=== PATIENT | female | born 1980 ===

== ENCOUNTER 2017-09-23 16:44 | Emergency (ER) | payer OTHER ==
--- NOTE | 2017-09-23 17:58 | RAD ---
INDICATION: Right hip pain. COMPARISON: There are no prior studies available for comparison. TECHNIQUE: An AP view of the pelvis and frontal and lateral views of the right hip were obtained. FINDINGS: The bones are in normal alignment. No fracture is seen. Joint spaces appear maintained. IMPRESSION: NO EVIDENCE FOR FRACTURE.
--- NOTE | 2017-09-23 18:04 | UC ---
Hip/Pelvis Pain - HPI Summary HPI Summary: Pt presents with right groin pain for 1 month. She tells me that she is very active and was in yoga one day when she felt a pull in her right groin. She was able to continue, but the pain persisted the next day. This has been bothering her intermittently since that time. When she has rested for a day or two, she will have no pain - but as soon as she is active, her pain will return. She has not taken anything OTC for this. Denies fever, chills, abdominal pain, n/v/d/c, dysuria, hematuria, flank pain, back pain, vaginal bleeding or discharge. - History Of Current Complaint Chief Complaint: UCLowerExtremity Stated Complaint: LEG INJURY Time Seen by Provider: 09/23/17 17:36 Hx Obtained From: Patient Hx Last Menstrual Period: 09/19/17 ?: No Onset/Duration: Gradual Onset Timing: Intermittent Episodes Lasting: Severity Initially: Mild Severity Currently: Mild Pain Intensity: 1 Pain Scale Used: 0-10 Numeric Character Of Pain: Aching Aggravating Factor(s): Movement Alleviating Factor(s): Rest - Allergies/Home Medications Allergies/Adverse Reactions: Allergies Allergy/AdvReac Type Severity Reaction Status Date / Time No Known Allergies Allergy Verified 09/23/17 17:32 PMH/Surg Hx/FS Hx/Imm Hx Previously Healthy: Yes - Surgical History Surgical History: None - Family History Known Family History: Positive: None - Social History Occupation: Employed Full-time Lives: With Family Alcohol Use: Occasionally Substance Use Type: None Smoking Status (MU): Never Smoked Tobacco Review of Systems Constitutional: Negative Skin: Negative Respiratory: Negative Cardiovascular: Negative Gastrointestinal: Negative Genitourinary: Negative Neurovascular: Negative Musculoskeletal: Other: - Pain right hip Neurological: Negative Psychological: Negative All Other Systems Reviewed And Are Negative: Yes Physical Exam Triage Information Reviewed: Yes Appearance: Well-Appearing, No Pain Distress, Well-Nourished Vital Signs: Initial Vital Signs Temp 97.6 F 09/23/17 17:28 Pulse 84 09/23/17 17:28 Resp 18 09/23/17 17:28 BP 118/66 09/23/17 17:28 Pulse Ox 99 09/23/17 17:28 Vital Signs Reviewed: Yes Neck: Positive: Supple, Nontender, No Lymphadenopathy, Other: - FROM Respiratory: Positive: Lungs clear, Normal breath sounds, No respiratory distress, No accessory muscle use Cardiovascular: Positive: RRR, No Murmur, Pulses Normal Abdomen Description: Positive: Nontender, No Organomegaly, Soft, Other: - No inguinal or femoral hernia appreciated. Negative: Distended, Guarding Bowel Sounds: Positive: Present Musculoskeletal: Positive: Strength Intact - Right hip, ROM Intact - Right hip, but with reproduction of pain in right groin, No Edema, Other: - TTP over right inguinal region/hip. Positive OG for groin pain. Negative SLR. Neurological: Positive: Alert, Other: - Sensations intact L2-S1 and symmetric b/ l LEs Psychological: Positive: Age Appropriate Behavior Skin: Negative: rashes, significant lesion(s) Hip Injury Course/Dx - Course Course Of Treatment: Hip XR: IMPRESSION: NO EVIDENCE FOR FRACTURE. I suspect this is a muscle strain. Advised to try ibuprofen and restrain from physical activities for at least 1 week. Apply heat. - Differential Dx/Diagnosis Provider Diagnoses: Right groin muscle strain Discharge - Discharge Plan Condition: Stable Disposition: HOME Prescriptions: Ibuprofen [Ibuprofen 200 MG] 400 mg PO Q6HR PRN #30 cap PRN Reason: Pain Patient Education Materials: Muscle Strain (DC) Referrals: No Primary Care Phys,NOPCP [Primary Care Provider] - Additional Instructions: If you develop a fever, shortness of breath, chest pain, new or worsening symptoms - please call your PCP or go to the ED. 1) Rest and apply heat to the area for 20 minutes two or three times daily 2) If your pain worsens or persist after 10-14 days, please return or follow up with your Primary Doctor for further evaluation. 3) You may take 400mg of ibuprofen every 6 hours as needed for pain
== END 2017-09-23 18:23 | disposition home or self-care (01) ==
LOC: UCEAST 16:44
DX: S76.211A Strain of adductor muscle, fascia and tendon of right thigh, initial encounter (principal); X58.XXXA Exposure to other specified factors, initial encounter; Y93.42 Activity, yoga; Y92.9 Unspecified place or not applicable
CPT/HCPCS: 99202; G0463